=== PATIENT | female | born 1975 | race African-American/Black ===

== ENCOUNTER 2017-03-08 21:23 | Emergency (ER) | payer OTHER ==
[~2017-03-08] VITALS: Ht 162.6 cm; Wt 77.1 kg
[~2017-03-08 21:23] MED LIST: DIFLUCAN100 MG PO; FLEXERIL PO; IRON325 PO; LANTUS100 UNIT/M SUBQ; NOVOLOG100 UNIT/1 SQ; PERCOCET 5-3251 EACH PO; TRAMADOL 50 MG50 MG PO; TUMS PO; UNICOMPLEX M TA1 TA1 PO; VITAMIN B12-FO1 EAC1 PO; ZOCOR40 MG PO
[2017-03-08 22:18] LABS: URINE BILIRUBIN NEGATIVE (Negative); URINE BLOOD NEGATIVE (Negative); URINE COLOR YELLOW; URINE GLUCOSE-RANDOM* 3+ (Negative); URINE KETONES NEGATIVE (Negative); URINE LEUKOCYTES-REFLEX NEGATIVE (Negative); URINE PROTEIN (DIPSTICK) NEGATIVE (Negative)
[2017-03-08 22:45] LABS: ABG SAMPLE TYPE VENOUS; BE(vivo) 3.4 mmol/L (-2 to +3); HCO3 28.4 mmol/L (22.0-26.0); LACTATE 1.68 mmol/L (0.5-2.0); O2(CT) 11.4 mL/dL (15.0-23.0); O2Hb VENOUS 75.9 (65.0-85.0); PCO2 VENOUS 45.2 mmHg (41.0-51.0); PO2 VENOUS 41.3 mmHg (35.0-45.0); sO2 VENOUS 77.2 % (65.0-85.0); tCO2 29.8 mmol/L (24.0-30.0)
[2017-03-08 22:46] LABS: STICK SITE RAC
[2017-03-08] MEDS ORDERED: FENTANYL 1100 MCG/HR TRANSDERM (22:51)
[2017-03-08 22:56] LABS: BASOPHILS 0.5 % (0.0-2.0); EOSINOPHILS 3.7 % (0.0-3.0); HEMATOCRIT 36.5 % (37.0-47.0); HEMOGLOBIN 11.8 gm/dL (12.0-15.0); LYMPHOCYTES 36.6 % (24.0-44.0); MCH 30.3 pg (26.0-34.0); MCHC 32.4 g/dL (28.0-37.0); MCV 93.7 fL (80.0-100.0); MONOCYTES 5.6 % (1.0-8.0); POLYS 53.6 % (36.0-66.0); RDW 14.7 % (10.5-14.5); WBC 8.3 thou/uL (4.0-11.0)
[2017-03-08 22:58] LABS: MANUAL DIFF NO
[2017-03-08 23:05] LABS: CALCIUM 8.4 mg/dL (8.5-10.1); CREATININE 0.7 mg/dL (0.6-1.0); POTASSIUM 4.3 mmol/L (3.5-5.1)
[2017-03-08 23:11] LABS: TOTAL BILIRUBIN 0.3 mg/dL (<0.1-1.0)
[2017-03-08] MEDS ORDERED: CLEOCIN HCL150 MG PO (23:36)
[2017-03-08] MEDS ORDERED: ZOFRAN4 MG PO (23:36)
[2017-03-08] MEDS ORDERED: ULTRAM 50MG TAB50 MG PO (23:38)
[2017-03-09 00:21] LABS: PLATELET COUNT 295 thou/uL (150-400)
[2017-03-09 00:38] VITALS: BP 134/74
== END 2017-03-09 00:39 | disposition home or self-care (01) ==
LOC: ER 21:23
PROVIDERS: Emergency Medicine
DX: E11.65 Type 2 diabetes mellitus with hyperglycemia (principal); K02.9 Dental caries, unspecified; G89.29 Other chronic pain; Z86.73 Personal history of transient ischemic attack (TIA), and cerebral infarction without residual deficits; Z79.4 Long term (current) use of insulin; Z88.0 Allergy status to penicillin; Z91.041 Radiographic dye allergy status; Z88.6 Allergy status to analgesic agent